=== PATIENT | female | born 1960 | race Caucasian/White ===

== ENCOUNTER 2024-02-17 22:12 | Emergency (ER) | payer OTHER ==
[~2024-02-17] VITALS: Ht 152.4 cm; Wt 89.0 kg
[2024-02-17 22:21] VITALS: TEMP 97.6; O2SAT 100
[2024-02-17] MEDS ORDERED: VALPROATE SODIUM 1,000 MG in DEXT 5% WATER 100 ML IV ONE (23:30)
[2024-02-18 00:24] LABS: BASOPHILS % 0.4 % (0.0-2.0); DIFFERENTIAL COMMENT 0; EOSINOPHILS % 0.2 % (0.0-5.0); HEMOGLOBIN. 12.1 g/dL (12.0-16.0); LYMPHOCYTES % 12.5 % (20.0-50.0); MEAN CORPUSCULAR HEMOGLOBIN 26.5 pg (28.0-32.0); MEAN CORPUSCULAR HGB CONC 33.5 g/dL (31.0-37.0); MEAN PLATELET VOLUME 7.7 fl (7.4-10.4); MONOCYTES % 3.5 % (2.0-8.0); NEUTROPHILS % 83.4 % (40.0-76.0); PLATELET 253 x1000/uL (130-400); RED BLOOD CELL COUNT 4.56 mill/uL (4.2-5.4); RED CELL DISTRIBUTION WIDTH 13.4 % (11.6-14.6); WHITE BLOOD COUNT 6.2 x1000/uL (4.5-11.0)
[2024-02-18 00:31] LABS: CHLORIDE 106 mEq/L (98-107); POTASSIUM 4.2 mEq/L (3.5-5.1); SODIUM 139 mEq/L (136-145)
[2024-02-18 00:32] LABS: CALCIUM 9.3 mg/dL (8.7-10.4); CARBON DIOXIDE 26 mEq/L (21-32)
[2024-02-18 00:37] LABS: CREATININE 0.8 mg/dL (0.6-1.0); GLUCOSE 144 mg/dL (70-105); UREA NITROGEN BLOOD 10 mg/dL (9-23)
[2024-02-18] MEDS: VALPROATE SODIUM 1,000 MG in DEXT 5% WATER 100 ML IV NR (01:16)
[2024-02-18 05:19] VITALS: BP 116/64; PULSE 71; RESP 15
== END 2024-02-18 05:32 | disposition home or self-care (01) ==
LOC: ER 22:12
DX: G43.909 Migraine, unspecified, not intractable, without status migrainosus (principal)
CPT/HCPCS: 99285; 80048; 85025; 36415; 96365; 70450; J3490; J7060